=== PATIENT | female | born 1990 | race Caucasian/White ===

== ENCOUNTER 2017-03-14 01:59 | Outpatient (CLI) | payer OTHER ==
[~2017-03-14] VITALS: Ht 154.9 cm; Wt 85.0 kg
[2017-03-14] MEDS ORDERED: PRENATAL1 TA7 PO (02:19)
[2017-03-14 02:20] VITALS: BP 127/78; PULSE 94; TEMP 98.5
[2017-03-14 02:25] VITALS: BP 127/78; PULSE 94; TEMP 98.5
[2017-03-14 04:15] VITALS: BP 118/74; PULSE 82; TEMP 98.3
[2017-03-15] MEDS ORDERED: IBU600 MG PO (11:50)
[2017-03-15] MEDS ORDERED: PERCOCET 325 MG1 TA2 PO (11:50)
== END 2017-03-14 04:40 | disposition home or self-care (01) ==
LOC: LDRO 01:59
DX: Z34.03 Encounter for supervision of normal first pregnancy, third trimester (principal); Z3A.39 39 weeks gestation of pregnancy

== ENCOUNTER 2017-03-14 21:43 | Inpatient (IN) | payer SELFPAY ==
[~2017-03-14] VITALS: Ht 154.9 cm; Wt 85.0 kg
[2017-03-14] VITALS (7 sets, daily range): BP systolic 104–138; BP diastolic 55–86; PULSE 92–100; TEMP 97.6
[~2017-03-14 21:43] MED LIST: PRENATAL1 TA7 PO
[2017-03-14 22:16] LABS: BASO # 0.1 (0.0-0.2); BASO % 0.3 % (0.0-2.0); EOS # 0.6 (0.0-0.7); EOS % 2.3 % (0-4.0); GRAN # 19.2 (1.4-6.5); GRAN % 78.9 % (42.2-75.2); HEMATOCRIT 38.8 % (37.0-47.0); HEMOGLOBIN 13.3 g/dl (12.5-16.0); LYMPH # 2.9 (1.2-3.4); LYMPH % 11.9 % (20.0-51.0); MEAN CELL VOLUME 87 fl (80.0-100.0); MEAN CORPUSCULAR HEMOGLOBIN 30 pg (27.0-31.0); MEAN CORPUSCULAR HGB CONC 34 g/dl (33.0-37.0); MEAN PLATELET VOLUME 9.9 fl (7.4-10.4); MONO # 1.4 (0.1-0.6); MONO % 5.5 % (1.7-9.3); PLATELET COUNT 302 K/mm3 (130-400); RED BLOOD COUNT 4.48 M/mm3 (4.10-5.30); REDCELL DISTRIBUTION WIDTH-CV 12.9 % (11.5-14.5)
[2017-03-14 22:19] LABS: WHITE BLOOD COUNT 24.4 K/mm3 (4.8-10.8)
[2017-03-15 00:15] VITALS: BP 114/56; PULSE 86
[2017-03-15 00:45] VITALS: BP 119/57; PULSE 101
[2017-03-15 02:15] VITALS: BP 112/79; PULSE 129; TEMP 98.2
[2017-03-15 08:27] LABS: MEAN CELL VOLUME 88 fl (80.0-100.0); MEAN CORPUSCULAR HGB CONC 34 g/dl (33.0-37.0); PLATELET COUNT 237 K/mm3 (130-400); RED BLOOD COUNT 3.53 M/mm3 (4.10-5.30); REDCELL DISTRIBUTION WIDTH-CV 12.9 % (11.5-14.5)
[2017-03-15 08:34] LABS: WHITE BLOOD COUNT 22.7 K/mm3 (4.8-10.8)
[2017-03-15 08:35] LABS: HEMATOCRIT 31.1 % (37.0-47.0); HEMOGLOBIN 10.7 g/dl (12.5-16.0); MEAN CORPUSCULAR HEMOGLOBIN 30 pg (27.0-31.0)
[2017-03-15 09:00] VITALS: BP 102/63; PULSE 91; TEMP 98.1
[2017-03-15 09:10] LABS: ADD PATHOLOGY DIFF REVIEW NO
[2017-03-15 09:13] LABS: BAND 27 % (0-10); EOSINOPHIL 2 % (0-4); METAMYELOCYTE 1 % (0-0); MYELOCYTE 1 % (0-0); NEUTROPHILS 57 % (42.0-75.2); PLATELET ESTIMATE NORMAL (NORMAL); TOTAL CELLS COUNTED 100
[2017-03-15] MEDS ORDERED: PERCOCET 325 MG1 TA2 PO (11:50)
[2017-03-15] MEDS ORDERED: IBU600 MG PO (11:50)
[2017-03-15 13:18] VITALS: BP 103/63; PULSE 90; TEMP 97.4
[2017-03-15 19:15] VITALS: BP 104/63; PULSE 89; TEMP 98.3
[2017-03-16 07:55] VITALS: BP 109/65; PULSE 84; TEMP 98.1
== END 2017-03-16 14:35 | disposition home or self-care (01) | DRG 775 ==
LOC: LDRO 21:43 → LDR 22:02 → OB 03-15 01:15
PROVIDERS: Obstetrics & Gynecology
PROC: 10E0XZZ Delivery of Products of Conception, External Approach (ICD-10-PCS; principal; 2017-03-14)
PROC: 0W8NXZZ Division of Female Perineum, External Approach (ICD-10-PCS; 2017-03-14)
DX: O77.0 Labor and delivery complicated by meconium in amniotic fluid (principal); O70.1 Second degree perineal laceration during delivery; Z3A.39 39 weeks gestation of pregnancy; Z37.0 Single live birth
CPT/HCPCS: J2590; J7120